=== PATIENT | male | born 1970 | race Caucasian/White ===

== ENCOUNTER 2020-03-27 18:08 | Emergency (ER) | payer OTHER, SELFPAY ==
--- NOTE | ~2020-03-27 | XR_ITS ---
EXAMINATION: XR forearm RT 2V DATE: 03/27/2020 18:33 INDICATION: Right elbow pain and swelling. TECHNIQUE: 2 views of right forearm on 3 radiographs were obtained. COMPARISON: None. FINDINGS: Bone alignment is normal. There is a nondisplaced fracture of radial head. The elbow joint space is normal. There is an enthesophyte at olecranon. There is an elbow joint effusion. IMPRESSION: 1. Nondisplaced fracture of radial head. 2. Elbow joint effusion. Reviewed, dictated and finalized at location A.
--- NOTE | ~2020-03-27 | XR_ITS ---
EXAMINATION: XR elbow LT min 3V DATE: 03/27/2020 18:55 INDICATION: Right elbow injury and pain. TECHNIQUE: 4 views of right elbow were obtained. COMPARISON: None. FINDINGS: There is a nondisplaced sagittal fracture of radial head. Joint spaces are normal. There is an enthesophyte at olecranon. There is an elbow joint effusion. IMPRESSION: 1. Nondisplaced sagittal fracture of radial head. 2. Elbow joint effusion. Reviewed, dictated and finalized at location A.
--- NOTE | ~2020-03-27 | XR_ITS ---
EXAMINATION: XR humerus RT DATE: 03/27/2020 18:34 INDICATION: Right upper arm injury. TECHNIQUE: 2 views of right humerus were obtained. COMPARISON: None. FINDINGS: Bone alignment is normal. There is a nondisplaced fracture of radial head. 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 There is an elbow joint effusion. IMPRESSION: 1. Nondisplaced fracture of radial head. 2. Elbow joint effusion. Reviewed, dictated and finalized at location A.
[2020-03-27 18:13] VITALS: BP 179/94; PULSE 106; RESP 17; TEMP 35.9; O2SAT 98
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
[2020-03-27 20:00] VITALS: BP 161/83; PULSE 89; RESP 18; TEMP 36.7; O2SAT 99
== END 2020-03-27 20:04 | disposition home or self-care (01) ==
PROVIDERS: Emergency Provider Emergency Medicine
DX: S52.124A Nondisplaced fracture of head of right radius, initial encounter for closed fracture (principal); V18.4XXA Pedal cycle driver injured in noncollision transport accident in traffic accident, initial encounter
CPT/HCPCS: 29125; 73060; 73080; 73090; 99284; A4565